=== PATIENT | female | born 1985 | race Caucasian/White ===

== ENCOUNTER 2018-09-06 05:15 | Inpatient (IN) | payer OTHER ==
[2018-09-06] MEDS ORDERED: CEFAZOLIN 2 GM/50 ML (PMX) 50 ML IVPB (05:30)
[2018-09-06] MEDS ORDERED: OXYTOCIN 30 UNITS/LR 500 ML IV ×2 (05:30→12:30)
[2018-09-06] MEDS ORDERED: METHYLERGONOVINE 0.2 MG INJ IM ×2 (05:30→12:30)
[2018-09-06] MEDS ORDERED: CARBOPROST 250 MCG INJ IM ×2 (05:30→12:30)
[2018-09-06] MEDS ORDERED: MISOPROSTOL 200 MCG TAB PR ×2 (05:30→12:30)
[2018-09-06] MEDS: LACTATED RINGER'S 1,000 ML IV ×3 (05:58→12:06)
[2018-09-06 06:03] LABS: ADD MAN DIFF? NO
[2018-09-06 06:15] LABS: WHITE BLOOD COUNT 6.9 10^3/ul (4.8-10.8)
[2018-09-06 06:15] LABS: BASOPHIL # 0.1 10^3/ul (0.0-0.1); BASOPHILS % 0.9 % (0.0-2.0); EOSINOPHILS # 0.1 10^3/ul (0.0-0.5); EOSINOPHILS % 1.3 % (0.0-7.0); LYMPHOCYTES # 2.2 10^3/ul (0.8-2.9); LYMPHOCYTES % 31.4 % (15.0-51.0); MEAN CORPUSCULAR HEMOGLOBIN 29.2 pg (29.0-33.0); MEAN CORPUSCULAR HGB CONC 34.3 g/dl (32.0-37.0); MEAN CORPUSCULAR VOLUME 85.2 fl (82.0-101.0); MEAN PLATELET VOLUME 11.3 fl (7.4-10.4); MONOCYTE # 0.5 10^3/ul (0.3-0.9); MONOCYTES % 6.6 % (0.0-11.0); NEUTROPHILS % 58.8 % (39.0-77.0); PLATELET COUNT 184 10^3/UL (140-415); RED BLOOD COUNT 4.11 10^6/ul (4.20-5.40); RED CELL DISTRIBUTION WIDTH 13.5 % (11.5-14.5)
[2018-09-06 06:24] LABS: INR 0.95; PROTIME 12.8 Sec (11.9-14.9)
[2018-09-06 06:25] LABS: PARTIAL THROMBOPLASTIN TIME 26.6 Sec (23.0-35.0)
[2018-09-06] MEDS ORDERED: OXYTOCIN 30 UNITS/LR 500 ML BAG IV (07:00)
[2018-09-06 07:07] LABS: HEPATITIS B SURFACE ANTIGEN NEGATIVE (NEGATIVE)
[2018-09-06] MEDS ORDERED: CITRIC ACID/NA CITRATE 30 ML CUP (07:48)
[2018-09-06] MEDS ORDERED: ONDANSETRON 4 MG INJ ×2 (07:48→07:49)
[2018-09-06] MEDS ORDERED: KETOROLAC 30 MG INJ (07:49)
[2018-09-06] MEDS ORDERED: OXYTOCIN 10 UNIT INJ (07:49)
[2018-09-06] MEDS ORDERED: DEXAMETHASONE 4 MG/ML 1 ML INJ (07:49)
[2018-09-06] MEDS ORDERED: METOCLOPRAMIDE 10 MG INJ (07:49)
[2018-09-06] MEDS ORDERED: EPHEDrine 25 MG/5 ML SYG (07:49)
[2018-09-06] MEDS ORDERED: morphine SULFATE/PF (10 MG/10 ML) INJ (07:49)
[2018-09-06] MEDS ORDERED: morphine 2 MG INJ IV ×2 (08:30)
[2018-09-06] MEDS ORDERED: DIPHENHYDRAMINE 50 MG INJ IV ×2 (08:30)
[2018-09-06] MEDS ORDERED: OXYCODONE/ACETAMINOPHEN (5/325) TAB PO (08:30)
[2018-09-06] MEDS ORDERED: HYDROmorphONE 0.5 MG/0.5 ML SYG IV ×2 (08:30)
[2018-09-06] MEDS ORDERED: NALOXONE (0.4 MG/ML) INJ IV (08:30)
[2018-09-06] MEDS ORDERED: ALBUMIN HUMAN 5% 250 ML IV (08:30)
[2018-09-06] MEDS ORDERED: HYDROCODONE/APAP (5/325) TAB PO (08:30)
[2018-09-06] MEDS ORDERED: MEPERIDINE 25 MG INJ IV (08:30)
[2018-09-06] MEDS ORDERED: HYDROmorphONE 1 MG/5 ML IV SYRINGE IV ×2 (08:30)
[2018-09-06] MEDS ORDERED: FENTAnyl 50 MCG/ML VIAL IV ×2 (08:30)
[2018-09-06] MEDS ORDERED: NALBUPHINE HCL (10 MG/1 ML) INJ IV (08:30)
[2018-09-06] MEDS ORDERED: ONDANSETRON 4 MG INJ IV ×2 (08:30)
[2018-09-06] MEDS ORDERED: ACETAMINOPHEN 500 MG TAB PO (08:30)
[2018-09-06] MEDS ORDERED: EPHEDrine SULFATE 50 MG/5 ML SYG IV (08:30)
[2018-09-06] MEDS: OXYTOCIN 30 UNITS/LR 500 ML IV ×2 (09:42→14:05)
[2018-09-06] MEDS: ONDANSETRON 4 MG INJ IV (09:43)
[2018-09-06] MEDS: CITRIC ACID/NA CITRATE 30 ML CUP PO (09:43)
[2018-09-06] MEDS ORDERED: LANOLIN HPA 1 PKT TOP (12:30)
[2018-09-06] MEDS: IBUPROFEN 800 MG TAB PO ×2 (14:00→22:00)
[2018-09-06 15:46] LABS: RAPID PLASMA REAGIN NONREACTIVE (NR)
[2018-09-06] MEDS: SENNA/DOCUSATE NA (8.6MG/50MG) TAB PO (21:30)
[2018-09-07] MEDS: LACTATED RINGER'S 1,000 ML IV (00:28)
[2018-09-07] MEDS: KETOROLAC 30 MG INJ IV (04:00)
[2018-09-07] MEDS: IBUPROFEN 800 MG TAB PO ×3 (07:46→21:14)
[2018-09-07 08:24] LABS: ADD MAN DIFF? NO
[2018-09-07 08:33] LABS: BASOPHILS % 0.5 % (0.0-2.0); EOSINOPHILS % 0.4 % (0.0-7.0); HEMATOCRIT 26.4 % (37.0-47.0); HEMOGLOBIN 8.9 g/dl (12.0-16.0); LYMPHOCYTES % 24.1 % (15.0-51.0); MEAN CORPUSCULAR HEMOGLOBIN 28.8 pg (29.0-33.0); MEAN CORPUSCULAR HGB CONC 33.7 g/dl (32.0-37.0); MEAN CORPUSCULAR VOLUME 85.4 fl (82.0-101.0); MEAN PLATELET VOLUME 11.7 fl (7.4-10.4); MONOCYTE # 0.6 10^3/ul (0.3-0.9); MONOCYTES % 6.5 % (0.0-11.0); NEUTROPHIL # 5.8 10^3/ul (1.6-7.5); NEUTROPHILS % 67.8 % (39.0-77.0); PLATELET COUNT 152 10^3/UL (140-415); RED BLOOD COUNT 3.09 10^6/ul (4.20-5.40); RED CELL DISTRIBUTION WIDTH 13.4 % (11.5-14.5)
[2018-09-07 08:33] LABS: WHITE BLOOD COUNT 8.5 10^3/ul (4.8-10.8)
[2018-09-07] MEDS: SENNA/DOCUSATE NA (8.6MG/50MG) TAB PO ×2 (09:05→21:14)
[2018-09-07] MEDS: OXYCODONE/ACETAMINOPHEN (5/325) TAB PO ×2 (14:07→19:55)
[2018-09-07] MEDS: FERROUS SULFATE (EC) 325 MG TAB PO (21:14)
[2018-09-08] MEDS: IBUPROFEN 800 MG TAB PO ×3 (05:19→23:48)
[2018-09-08 08:59] LABS: ADD MAN DIFF? NO
[2018-09-08 09:04] LABS: BASOPHIL # 0.1 10^3/ul (0.0-0.1); BASOPHILS % 0.6 % (0.0-2.0); EOSINOPHILS # 0.1 10^3/ul (0.0-0.5); EOSINOPHILS % 0.9 % (0.0-7.0); HEMATOCRIT 27.6 % (37.0-47.0); HEMOGLOBIN 9.4 g/dl (12.0-16.0); LYMPHOCYTES # 1.8 10^3/ul (0.8-2.9); LYMPHOCYTES % 19.2 % (15.0-51.0); MEAN CORPUSCULAR HEMOGLOBIN 29.5 pg (29.0-33.0); MEAN CORPUSCULAR HGB CONC 34.1 g/dl (32.0-37.0); MEAN CORPUSCULAR VOLUME 86.5 fl (82.0-101.0); MEAN PLATELET VOLUME 11.3 fl (7.4-10.4); MONOCYTE # 0.5 10^3/ul (0.3-0.9); MONOCYTES % 5.5 % (0.0-11.0); NEUTROPHIL # 6.8 10^3/ul (1.6-7.5); NEUTROPHILS % 72.8 % (39.0-77.0); PLATELET COUNT 166 10^3/UL (140-415); RED BLOOD COUNT 3.19 10^6/ul (4.20-5.40); RED CELL DISTRIBUTION WIDTH 13.6 % (11.5-14.5)
[2018-09-08 09:04] LABS: WHITE BLOOD COUNT 9.4 10^3/ul (4.8-10.8)
[2018-09-08] MEDS: FERROUS SULFATE (EC) 325 MG TAB PO ×3 (09:21→21:14)
[2018-09-08] MEDS: SENNA/DOCUSATE NA (8.6MG/50MG) TAB PO ×2 (09:21→21:15)
[2018-09-08] MEDS: OXYCODONE/ACETAMINOPHEN (5/325) TAB PO (19:21)
[2018-09-09] MEDS: IBUPROFEN 800 MG TAB PO ×2 (05:51→14:38)
[2018-09-09] MEDS: SENNA/DOCUSATE NA (8.6MG/50MG) TAB PO (08:38)
[2018-09-09] MEDS: FERROUS SULFATE (EC) 325 MG TAB PO ×2 (08:38→14:38)
[2018-09-09] MEDS: DIPHTH/TET/ACEL PERTUSS (ADULT) 0.5 ML VIAL IM* (09:00)
== END 2018-09-09 17:25 | disposition home or self-care (01) | DRG 785 ==
LOC: L-D 05:15 → PP1 12:09
PROVIDERS: Obstetrics & Gynecology
PROC: 10D00Z1 Extraction of Products of Conception, Low, Open Approach (ICD-10-PCS; principal; 2018-09-06 07:30)
PROC: 0UL70ZZ Occlusion of Bilateral Fallopian Tubes, Open Approach (ICD-10-PCS; 2018-09-06 07:30)
PROC: 3E033VJ Introduction of Other Hormone into Peripheral Vein, Percutaneous Approach (ICD-10-PCS; 2018-09-06 07:30)
DX: O34.211 Maternal care for low transverse scar from previous cesarean delivery (principal); Z3A.39 39 weeks gestation of pregnancy; Z37.0 Single live birth
CPT/HCPCS: 85025; 85610; 85730; 86592; 86850; 86900; 86901; 87340; 88302; 99464